=== PATIENT | female | born 1980 | race Caucasian/White ===

== ENCOUNTER 2017-05-05 14:48 | Inpatient (IN) | payer OTHER ==
[2017-05-05 15:58] LABS: Basophils % (Auto) 0.6 % (0.0-1.8); Eosinophils % (Auto) 2.8 % (0.0-4.3); Hematocrit 42.8 % (30.3-42.9); Hemoglobin 14.2 gm/dl (10.1-14.3); Mean Corpuscular HGB Conc 33 % (30-34); Mean Corpuscular Hemoglobin 29 pg (28-32); Mean Corpuscular Volume 86 fl (79-97); Platelet Count 267 K/mm3 (140-440); Red Blood Count 4.96 M/mm3 (3.65-5.03); White Blood Count 6.7 K/mm3 (4.5-11.0)
[2017-05-05 16:17] LABS: Alanine Aminotransferase 21 units/L (7-56); Albumin 4.5 g/dL (3.9-5); Albumin/Globulin Ratio 1.3 %; Alkaline Phosphatase 72 units/L (35-129); Anion Gap 19 mmol/L; BUN/Creatinine Ratio 14.28; Blood Urea Nitrogen 10 mg/dL (7-17); Calcium 9.3 mg/dL (8.4-10.2); Carbon Dioxide 24 mmol/L (22-30); Chloride 101.7 mmol/L (98-107); Glucose 95 mg/dL (65-100); Potassium 3.3 mmol/L (3.6-5.0); Sodium 141 mmol/L (137-145); Total Protein 7.9 g/dL (6.3-8.2)
[2017-05-05] MEDS ORDERED: NITRO-BID 2% TP ONE (16:53)
[2017-05-05] MEDS ORDERED: ASPIRIN PO ONE (16:53)
--- NOTE | 2017-05-05 16:57 | Emergency Department Report ---
HPI - General Chief Complaint: Chest Pain Time Seen by Provider: 05/05/17 16:38 - HPI HPI: Room 22 The patient is a 37-year-old female presenting with a chief complaint of chest pain. The patient states for the past 1-2 hours she's had substernal chest pain was dull in nature. The patient states her pain associated with shortness of breath, diaphoresis and nausea without vomiting. The patient currently gives her pain a score of 7.5/10. The patient states she just completed an 8 hour bus trip from [place] today. The patient states she's had a stress test earlier this year but has never had a cardiac catheterization Location: Substernal chest Duration: 1 To 2 hours Quality: Dull Severity: 7.5/10 Modifying factors: [see above] Context: [see above] Mode of transportation: [not driving] ED Past Medical Hx - Past Medical History Hx Asthma: Yes Hx COPD: Yes (no home O2) - Surgical History Additional Surgical History: tonsilectomy, nasal surgery - Family History Family history: no significant - Social History Smoking Status: Former Smoker (none 10 years) Substance Use Type: None (denies illicit drug use) - Medications Home Medications: Home Medications Medication Instructions Recorded Confirmed Last Taken Type ALBUTEROL Inhaler [Proair] 2 puff IH Q4H PRN 05/05/17 05/05/17 Unknown History Cetirizine HCl [Allergy Relief] 10 mg PO DAILY 05/05/17 05/05/17 Unknown History Fluticasone [Flonase] 2 sprays NS QDAY 05/05/17 05/05/17 Unknown History Fluticasone/Salmeterol [Advair 1 each IH BID 05/05/17 05/05/17 05/03/17 History 250-50 Diskus] Meloxicam [Mobic] 15 mg PO QDAY 05/05/17 05/05/17 05/03/17 History Omeprazole Magnesium [PriLOSEC Otc] 20 mg PO BID 05/05/17 05/05/17 Unknown History Potassium Chloride [K-Dur] 10 meq PO BID 05/05/17 05/05/17 05/03/17 History ED Review of Systems ROS: Stated complaint: ANXIETY Other details as noted in HPI Comment: All other systems reviewed and negative Constitutional: diaphoresis Eyes: denies: eye pain, eye discharge, vision change ENT: denies: ear pain, throat pain Respiratory: shortness of breath Cardiovascular: chest pain Endocrine: no symptoms reported Gastrointestinal: nausea. denies: abdominal pain, vomiting, diarrhea Genitourinary: denies: urgency, dysuria, discharge Musculoskeletal: denies: back pain, joint swelling, arthralgia Skin: denies: rash, lesions Neurological: denies: headache, weakness, paresthesias Psychiatric: denies: anxiety, depression Hematological/Lymphatic: denies: easy bleeding, easy bruising Physical Exam - Physical Exam Vital Signs: Vital Signs 05/05/17 05/05/17 15:19 16:43 Temperature 97.9 F Pulse Rate 86 73 Respiratory 16 18 Rate Blood Pressure 108/75 Blood Pressure 108/75 123/75 [Right] O2 Sat by Pulse 100 100 Oximetry Physical Exam: GENERAL: The patient is well-developed well-nourished female lying on stretcher not appearing to be in acute distress. [] HEENT: Normocephalic. Atraumatic. Extraocular motions are intact. Patient has moist mucous membranes. NECK: Supple. Trachea midline CHEST/LUNGS: Clear to auscultation. There is no respiratory distress noted. HEART/CARDIOVASCULAR: Regular. There is no tachycardia. There is no gallop rub or murmur. ABDOMEN: Abdomen is soft, nontender. Patient has normal bowel sounds. There is no abdominal distention. SKIN: There is no rash. There is no edema. There is no diaphoresis. NEURO: The patient is awake, alert, and oriented. The patient is cooperative. The patient has normal speech MUSCULOSKELETAL: There is no evidence of acute injury. ED Course Vital Signs 05/05/17 05/05/17 15:19 16:43 Temperature 97.9 F Pulse Rate 86 73 Respiratory 16 18 Rate Blood Pressure 108/75 Blood Pressure 108/75 123/75 [Right] O2 Sat by Pulse 100 100 Oximetry ED Medical Decision Making - Lab Data Result diagrams: 05/05/17 15:38 05/05/17 15:38 Laboratory Tests 05/05/17 05/05/17 05/05/17 15:38 15:38 15:38 WBC 6.7 RBC 4.96 Hgb 14.2 Hct 42.8 MCV 86 MCH 29 MCHC 33 RDW 14.0 Plt Count 267 Lymph % (Auto) 30.8 [place] % (Auto) 5.5 Eos % (Auto) 2.8 Baso % (Auto) 0.6 Lymph # 2.1 [place] # 0.4 Eos # 0.2 Baso # 0.0 Seg Neutrophils % 60.3 Seg Neutrophils # 4.1 Sodium 141 Potassium 3.3 L Chloride 101.7 Carbon Dioxide 24 Anion Gap 19 BUN 10 Creatinine 0.7 Estimated GFR > 60 BUN/Creatinine Ratio 14.28 Glucose 95 Calcium 9.3 Total Bilirubin 0.50 AST 15 ALT 21 Alkaline Phosphatase 72 Total Creatine Kinase 121 CK-MB (CK-2) < 1.0 CK-MB (CK-2) Rel Index 0.8 Troponin T < 0.010 Total Protein 7.9 Albumin 4.5 Albumin/Globulin Ratio 1.3 Urine Color Urine Turbidity Urine pH Ur Specific [place] Urine Protein Urine Glucose (UA) Urine Ketones Urine Blood Urine Nitrite Urine Bilirubin Urine Urobilinogen Ur Leukocyte Esterase Urine WBC (Auto) Urine RBC (Auto) U Epithel Cells (Auto) Urine Mucus 05/05/17 16:43 WBC RBC Hgb Hct MCV MCH MCHC RDW Plt Count Lymph % (Auto) [place] % (Auto) Eos % (Auto) Baso % (Auto) Lymph # [place] # Eos # Baso # Seg Neutrophils % Seg Neutrophils # Sodium Potassium Chloride Carbon Dioxide Anion Gap BUN Creatinine Estimated GFR BUN/Creatinine Ratio Glucose Calcium Total Bilirubin AST ALT Alkaline Phosphatase Total Creatine Kinase CK-MB (CK-2) CK-MB (CK-2) Rel Index Troponin T Total Protein Albumin Albumin/Globulin Ratio Urine Color Yellow Urine Turbidity Clear Urine pH 5.0 Ur Specific Rumsey 1.025 Urine Protein 30 mg/dl Urine Glucose (UA) Neg Urine Ketones 20 Urine Blood Sm Urine Nitrite Neg Urine Bilirubin Neg Urine Urobilinogen 2.0 Ur Leukocyte Esterase Lg Urine WBC (Auto) 7.0 H Urine RBC (Auto) 9.0 U Epithel Cells (Auto) 7.0 Urine Mucus 3+ - EKG Data -: EKG Interpreted by Me EKG shows normal: sinus rhythm Rate: normal - EKG Data When compared to previous EKG there are: previous EKG unavailable - Radiology Data Radiology results: report reviewed (CT chest), image reviewed (CT chest) CT chest (as read by radiologist)-normal examination - Differential Diagnosis ACS, PE, pericarditis, GERD Critical care attestation.: If time is entered above; I have spent that time in minutes in the direct care of this critically ill patient, excluding procedure time. ED Disposition Clinical Impression: Chest pain, Hypokalemia Disposition: OP ADMIT IP TO THIS HOSP Is pt being admited?: Yes Does the pt Need Aspirin: Yes Condition: Fair Instructions: Chest Pain (ED) Referrals: PRIMARY CARE, [Primary Care Provider] - 3-5 Days Time of Disposition: 18:59 (hospitalist paged)
[2017-05-05 16:59] LABS: Creatine Kinase 121 units/L (30-135)
[2017-05-05 17:00] LABS: Creatine Kinase MB < 1.0 ng/mL (0.0-4.0)
--- NOTE | 2017-05-05 17:07 | Admit Criteria Form ---
Admission Criteria Documentation: CARDIOLOGY GRG Clinical Indications for Admission to Inpatient Care ( Place 'X' for any and all applicable criteria): Hospital admission is needed for appropriate care of the patient because of ANY ONE of the following (1): [ ] I. Hemodynamic instability as indicated by ALL of the following (1)(2)(3) (4)(5) [ ]a) Vital signs or other findings not as expected for chronic patient condition or baseline [ ]b) Instability indicated by ANY ONE of the following: [ ]i) Hypotension [ ]ii) Symptomatic Tachycardia unresponsive to treatment ( e.g., analgesia, fluids, sedation as indicated) [ ]iii) Inadequate perfusion indicated by ANY ONE of the following: [ ] 1) Lactic acidosis (> 2 mmol/L) [ ] 2) New abnormal capillary refill (> 3 seconds) [ ] 3) Reduced urine output [ ] 4) New altered mental status [ ]iv) Orthostatic vital sign changes unresponsive to treatment (e.g., fluids) [ ]v) IV inotropic or vasopressor medication required to maintain adequate blood pressure or perfusion [ ] II. Severe heart failure as indicated by ANY ONE of the following(17)(18) [ ]a) Respiratory distress [ ]b) Hypotension [ ]c) Anasarca (refractory to outpatient therapy) [ ]d) Cardiac arrhythmias of immediate concern [ ]e) Myocardial ischemia [ ] III. Cardiac arrhythmias or findings of immediate concern indicated by ANY ONE of the following (19)(20): [ ] a) Heart rhythms that are inherently dangerous or unstable indicated by ANY ONE of the following (21)(22)(23): [ ] i) Resuscitated ventricular fibrillation or cardiac arrest [ ] ii) Ventricular escape rhythm [ ] iii) Sustained ventricular tachycardia (30 seconds or more of ventricular rhythm at greater than 100 beats per minute) [ ] iv) Nonsustained ventricular tachycardia and ANY ONE of the following: [ ] 1) Suspected cardiac ischemia as cause or consequence of ventricular tachycardia [ ] 2) In setting of acute myocarditis [ ] b) Unstable cardiac conduction defects indicated by ANY ONE of the following(23)(24)(25) [ ] i) Type II second-degree atrioventricular block [ ]ii) Third-degree atrioventricular block [ ]iii) New-onset left bundle branch block with suspected myocardial ischemia [ ]c) Any heart rhythm and ANY ONE of the following (21)(22)(26)(27) (28) [ ] i) Continuous long-term ECG monitoring needed (e.g., initiation of drug requiring monitoring for more than 24 hours) [ ] ii) Patient has automatic implanted cardioverter defibrillator that is repeatedly firing, malfunctioning, or in need of immediate adjustment of settings beyond the scope of ambulatory or observation care [ ]d) Heart rhythms of concern due to ANY ONE of the following: [ ] i) Hypotension [ ] ii) Respiratory distress [ ] iii) Association with other significant symptoms (e.g., bradycardia with syncope or ongoing dizziness, supraventricular tachycardia with chest pain (14)(15)(17) [ ] IV. Monitoring for cardiac contusion beyond the scope of observation care needed [A](30)(31)(32) [ ] V. Surgical or device complication (e.g., valve replacement complication , pacemaker dysfunction) (35)(41)(44)(45)(46) [ ] . Inpatient palliative care needed. [B](49) Also use Inpatient Palliative Care Criteria [ ] VII. Nonbacterial thrombotic (marantic) endocarditis (36)(43)(47)(48) [X] VIII. Cardiology condition, symptom, or finding for which emergency and observation care has failed or are not considered appropriate. [ ] IX. Acute valvular disease requiring inpatient as indicated by ANY ONE of the following (41) [ ]a) Acute valvular regurgitation (42) [ ]b) Noninfectious valvulitis (43) [ ]c) Obstructive valve thrombosis [ ]d) Paravalvular leak [ ]e) Other significant valvular disorder remaining after emergency or observation level of care (as appropriate) [ ]X. Pericardial disease requiring inpatient treatment as indicated by ANY ONE of the following (33)(34)(35)(36)(37) [ ]a) Suspected tamponade (38)(39)(40) [ ]b) Hemopericardium [ ]c) Other significant pericardial disorder remaining after emergency or observation level of care (as appropriate) [ ] XI. Cardiac ischemia beyond scope of emergency and observation care. [ ] XII. Hypertension requiring inpatient treatment as indicated by ANY ONE of the following (6)(7)(8) [ ]a) SBP greater than 220 mm Hg or DBP greater than 120 mmHg despite treatment [ ]b) SBP greater than 140 mm Hg or DBP greater than 100 mm Hg with evidence of acute end organ damage as indicated by ANY ONE of the following [ ] i) Altered mental status [ ] ii) Acute renal failure as indicated by new onset of ANY ONE of the following (9)(10)(11)(12)(13) [ ]1) 3-fold rise in serum creatinine from baseline [ ]2) Serum creatinine greater than 4 mg/dL ( 354 micromoles/L) with acute rise greater than 0.5 mg/dL (44.2 micromoles/L) [ ]3) Reduction of more than 75% in estimated glomerular filtration rate from baseline [ ]4) Estimated glomerular filtration rate less than 35 mL/min/1.73m2 (0.59 mL/sec/1.73m2) in child up to 18 years of age [ ]5) Cessation of urine output indicated by ALL of the following [ ]A. Adequate volume status [ ]B. Inadequate urine output as indicated by ANY ONE of the following [ ]a. Urine output less than 0.3 mL/kg/hr for 24 hours [ ]b. Anuria (urine output less than 0.1 mL/kg/hr) for 12 hours [ ] iii) Aortic dissection [ ] iv) Myocardial Ischemia [ ] v) Left ventricular heart failure [ ]vi) Retinal Hemorrhage [ ]vii) Other significant finding [ ]c) Hypertension in child requiring inpatient treatment as indicated by ALL of the following(14)(15)(16) [ ] i) Outpatient treatment not effective, not available, or not appropriate [ ]ii) SBP or DBP greater than 95th percentile for age [ ]iii) Evidence of acute end organ damage as indicated by ANY ONE of the following [ ]1) Altered mental status [ ]2) Acute renal failure as indicated by new onset of ANY ONE of the following(9)(10)(11)(12)(13) [ ]A. 3-fold rise in serum creatinine from baseline [ ]B. Serum creatinine greater than 4 mg/dL (354 micromoles/L) with acute rise greater than 0.5 mg/dL (44.2 micromoles/L) [ ]C. Reduction of more than 75% in estimated glomerular filtration rate from baseline [ ]D. Estimated glomerular filtration rate less than 35 mL/min/1.73m2 (0.59 mL/sec/1.73m2) in child up to 18 years of age [ ]E. Cessation of urine output indicated by ALL of the following [ ]a. Adequate volume status [ ]b. Inadequate urine output as indicated by ANY ONE of the following [ ]i) Urine output less than 0.3 mL/kg/hr for 24 hours [ ]ii) Anuria ( urine output less than 0.1 mL/kg/hr) for 12 hours [ ]3) Severe headache [ ]4) Visual disturbance [ ]5) Retinal hemorrhage [ ]6) Other significant finding [ ]XIII. Complications of transplanted heart indicated by ANY ONE of the following(61): [ ]a) Acute graft rejection requiring inpatient management (eg, intravenous immunosuppression)(62)(63) [ ]b) Acute graft heart failure indicated by ANY ONE of the following(64): [ ]i) Hemodynamic instability [ ]ii) Cardiac arrhythmias of immediate concern [ ]iii) Pulmonary edema that is very severe (eg, mechanical ventilation needed, imminent or likely, need for 100% oxygen to keep oxygen saturation above 90%) [ ]iv) Pulmonary edema that is persistent as indicated by ALL of the following: [ ]1) New need for oxygen therapy to keep oxygen saturation above 90% (or increased FiO2 need from baseline) [ ]2) Has not improved sufficiently with emergency department or observation care IV diuretics or other heart failure treatments[E] [ ]v) Altered mental status that is severe or persistent [ ]vi) Increased creatinine (new on laboratory test) with reduction of more than 50% in estimated glomerular filtration rate from baseline [ ]vii) Progressively (ongoing) rising creatinine (known from past laboratory test) with reduction of more than 25% in estimated glomerular filtration rate from baseline [ ]viii) Acute renal failure [ ]ix) Acute peripheral ischemia (eg, examination shows pulseless, cool, mottled, or cyanotic extremity) [ ]x) Pulmonary artery catheter monitoring needed [ ]xi) Other sign or symptom of heart failure requiring inpatient treatment (ie, too severe or not responsive to outpatient and observation care treatment) [ ]c) Infection requiring inpatient management (eg, Hemodynamic instability, need for intravenous antimicrobial treatment)(66)(67)(68)(69)(70) [ ]d) Cardiac allograft vasculopathy requiring inpatient management ( eg evidence of cardiac ischemia)(71) [ ]e) Other complication of transplanted heart (eg, stroke, severe pulmonary hypertension, severe valvular dysfunction) requiring inpatient management(72) The original [facility] [employer] content created by [employer] [facility] [employer] has been revised. The portions of the content which have been revised are identified through the use of italic text or in bold, and [facility] has neither reviewed nor approved the modified material. All other unmodified content is copyright [facility] [employer]. Please see references footnoted in the original [facility] [employer] edition 2016 Admission Criteria Met: Yes
[2017-05-05 17:18] LABS: Bilirubin,Urine NEG (Negative); Blood,Urine SM (Negative); Ketones,Urine 20 mg/dL (Negative); Leukocyte Esterase,Urine LG (Negative); Mucus,Urine 3+ /HPF; Nitrite,Urine NEG (Negative)
[2017-05-05] MEDS ORDERED: NACL ONE (17:21)
--- NOTE | 2017-05-05 18:24 | Cat Scan Report ---
FINAL REPORT PROCEDURE: CT ANGIO CHEST TECHNIQUE: Computerized tomographic angiography of the chest was performed after the IV injection of iodinated nonionic contrast including image processing. The image data was postprocessed using 2-dimensional multiplanar reformatted (MPR) and 3-dimensional (MIP and/or volume rendered) techniques. HISTORY: chest pain, shortness of breath COMPARISON: No prior studies are available for comparison. FINDINGS: Lungs are clear. The heart is normal in size. No pneumothorax or pleural effusion is seen. There is no mediastinal lymphadenopathy. Thoracic aorta is normal in size without evidence of dissection. No pulmonary embolus is seen. No fractures are seen. IMPRESSION: Normal Examination
[2017-05-05] MEDS ORDERED: NON-FORMULARY (Cetirizine Hcl [Allergy Relief] 10 MG) PO SCH (21:00)
[2017-05-05] MEDS ORDERED: AMBIEN PO PRN (21:01)
[2017-05-05] MEDS ORDERED: SODIUM CHLORIDE FLUSH SYRINGE 10 ML IV PRN (21:01)
[2017-05-05] MEDS ORDERED: FLUTICASONE IH SCH (22:00)
[2017-05-05] MEDS ORDERED: SALMETEROL IH SCH (22:00)
--- NOTE | 2017-05-05 22:30 | History and Physical Report ---
History of Present Illness Date of examination: 05/05/17 Date of admission: 05/05/17 18:59 Chief complaint: Chest pain - one day duration History of present illness: Patient is a 37-year-old lady who has a history of COPD, and arthritis of the ankle was traveling down to [place] from [place] when she started having dull on account of retrosternal chest pain. Associated with shortness of breath. Denies any diaphoresis. No fever no chills. No orthopnea proximal nocturnal dyspnea. Came to the emergency department with evidence of cardiac enzymes were normal. Potassium was found to be ordered 3.3. Admission was therefore requested. Past History Past Medical History: COPD, other (hypokalemia) Past Surgical History: No surgical history Social history: lives with family. denies: smoking, alcohol abuse, prescription drug abuse Family history: hypertension Medications and Allergies Allergies Allergy/AdvReac Type Severity Reaction Status Date / Time No Known Allergies Allergy Unverified 05/05/17 15:23 Home Medications Medication Instructions Recorded Confirmed Last Taken Type ALBUTEROL Inhaler [Proair] 2 puff IH Q4H PRN 05/05/17 05/05/17 Unknown History Cetirizine HCl [Allergy Relief] 10 mg PO DAILY 05/05/17 05/05/17 Unknown History Fluticasone [Flonase] 2 sprays NS QDAY 05/05/17 05/05/17 Unknown History Fluticasone/Salmeterol [Advair 1 each IH BID 05/05/17 05/05/17 05/03/17 History 250-50 Diskus] Meloxicam [Mobic] 15 mg PO QDAY 05/05/17 05/05/17 05/03/17 History Omeprazole Magnesium [PriLOSEC Otc] 20 mg PO BID 05/05/17 05/05/17 Unknown History Potassium Chloride [K-Dur] 10 meq PO BID 05/05/17 05/05/17 05/03/17 History Active Meds: Active Medications Arformoterol Tartrate (Brovana Nebu) 15 mcg IH Q12HRT [facility] Aspirin (Aspirin) 325 mg PO QDAY DELMY Budesonide (Pulmicort) 0.5 mg IH Q12HRT DELMY Enoxaparin Sodium (Lovenox) 40 mg SUB-Q QDAY DELMY Fluticasone Propionate (Flonase) 100 mcg NS QDAY DELMY Loratadine (Claritin) 10 mg PO DAILY DELMY Potassium Chloride (K-Dur) 10 meq PO BID DELMY Sodium Chloride (Sodium Chloride Flush Syringe 10 Ml) 10 ml IV PRN PRN PRN Reason: LINE FLUSH Zolpidem Tartrate (Ambien) 5 mg PO QHS PRN PRN Reason: Sleep Exam - Constitutional Vitals: Temp Pulse Resp BP Pulse Ox 98.2 F 70 17 104/62 99 05/05/17 15:19 05/05/17 20:35 05/05/17 20:35 05/05/17 20:35 05/05/17 20:35 General appearance: Present: no acute distress, well-nourished - EENT Eyes: Present: PERRL - Neck Neck: Present: supple, normal ROM - Respiratory Respiratory effort: normal Respiratory: bilateral: CTA - Cardiovascular Heart Sounds: Present: S1 & S2. Absent: rub, click - Extremities Extremities: No edema Peripheral Pulses: within normal limits - Abdominal General gastrointestinal: Present: soft, non-tender, non-distended, normal bowel sounds Female genitourinary: Present: normal - Integumentary Integumentary: Present: clear, warm, dry - Musculoskeletal Musculoskeletal: gait normal, strength equal bilaterally - Psychiatric Psychiatric: appropriate mood/affect, intact judgment & insight - Neurologic Neurologic: CNII-XII intact, moves all extremities Results - Labs CBC & Chem 7: 05/05/17 15:38 05/05/17 15:38 Assessment and Plan - Chest pain rule out acute coronary syndrome - COPD Admit patient to telemetry Commence patient on oxygen nitroglycerin aspirin and morphine and beta jai Commence patient on Bronchodilators, IV Solu-Medrol. DVT PPx with lovenox and GI with pepcid
[2017-05-05] MEDS: LOVENOX SUB-Q SCH (22:43)
[2017-05-05] MEDS: K-DUR PO SCH (22:44)
[2017-05-05] MEDS: BROVANA NEBU IH SCH (23:18)
[2017-05-05] MEDS: PULMICORT IH SCH (23:19)
[2017-05-05] MEDS: MORPHINE IV PRN (23:38)
[2017-05-05] MEDS: CLARITIN PO SCH (23:38)
[2017-05-06 01:39] LABS: Creatine Kinase 108 units/L (30-135)
[2017-05-06 01:42] LABS: Creatine Kinase MB < 1.0 ng/mL (0.0-4.0)
[2017-05-06] MEDS: MORPHINE IV PRN ×2 (06:07→12:16)
[2017-05-06 06:26] LABS: Creatine Kinase 97 units/L (30-135)
[2017-05-06 06:28] LABS: Creatine Kinase MB < 1.0 ng/mL (0.0-4.0)
[2017-05-06] MEDS ORDERED: LEXISCAN IV ONE ×2 (08:10→08:11)
[2017-05-06] MEDS ORDERED: ASPIRIN PO SCH (10:00)
[2017-05-06] MEDS ORDERED: FLONASE NS SCH (10:00)
[2017-05-06] MEDS: BROVANA NEBU IH SCH (10:28)
[2017-05-06] MEDS: PULMICORT IH SCH (10:28)
[2017-05-06] MEDS: CLARITIN PO SCH (10:30)
[2017-05-06] MEDS: LOVENOX SUB-Q SCH (10:30)
[2017-05-06] MEDS: K-DUR PO SCH (10:30)
--- NOTE | 2017-05-06 10:32 | Discharge Summary ---
Providers - Providers Date of Admission: 05/05/17 18:59 Date of discharge: 05/06/17 Attending physician: ELIDA RIZZO MD 05/05/17 Consult to Cardiac Rehabilitation [CONS] Routine Reason For Exam: Phase I Primary care physician: TIP FIXER Hospitalization Reason for admission: Chest pain Condition: Fair Pertinent studies: Cardiac stress test: negative for acute ischemia Hospital course: Patient is a 37-year-old lady who has a history of COPD, and arthritis of the ankle was traveling down to [place] from [place] when she started having dull on account of retrosternal chest pain. Associated with shortness of breath. Denies any diaphoresis. No fever no chills. No orthopnea proximal nocturnal dyspnea. Came to the emergency department with evidence of cardiac enzymes were normal. Potassium was found to be ordered 3.3. Patient was admitted and her potassium was repleted. Her home COPD medications were restarted. MPI was negative for ischemia. patient's chest pain was subsided. patient was hemodynamically stable at the time of discharge. Patient ran out of her COPD medications and were refilled at the time of discharge. patient's questions and concerns were addressed at the bedside. Disposition: DC-01 TO HOME OR SELFCARE Time spent for discharge: 31 minutes - Discharge Diagnoses (1) Chest pain Status: Acute Qualifiers: Chest pain type: C Ischemic chest pain type: I (2) Hypokalemia Status: Acute Core Measure Documentation - Palliative Care Palliative Care/ Comfort Measures: Not Applicable - Core Measures Any of the following diagnoses?: none Exam - Physical Exam Narrative exam: Not in cardiopulmonary distress. The patient appeared well nourished and normally developed. Vital signs as documented. Head exam is unremarkable. No scleral icterus . Neck is without jugular venous distension, thyromegaly, or carotid bruits. Lungs are clear to auscultation. Cardiac exam reveals regular rate and Rhythm. First and second heart sounds normal. No murmurs, rubs or gallops. Abdominal exam reveals normal bowel sounds, no masses, no organomegaly and no aortic enlargement. Extremities are nonedematous and both femoral and pedal pulses are normal. [employer]: Alert and oriented 3. No focal weakness. - Constitutional Vitals: Temp Pulse Resp BP Pulse Ox 98.2 F 68 18 88/66 96 05/06/17 06:01 05/06/17 06:01 05/06/17 06:37 05/06/17 06:01 05/06/17 06:01 Plan Activity: no restrictions Weight Bearing Status: Full Weight Bearing Diet: low cholesterol Follow up with: PRIMARY CARE, [Primary Care Provider] - 3-5 Days Prescriptions: ALBUTEROL Inhaler [ProAir HFA Inhaler] 2 puff IH Q4H PRN #1 can PRN Reason: Wheezing Cetirizine HCl [Allergy Relief] 10 mg PO DAILY #15 tablet Fluticasone [Flonase] 2 sprays NS QDAY #1 bottle Fluticasone/Salmeterol [Advair 250-50 Diskus] 1 each IH BID #1 [facility] Meloxicam [Mobic] 15 mg PO QDAY #30 tablet Omeprazole Magnesium [PriLOSEC Otc] 20 mg PO BID #28 tablet. Potassium Chloride [K-Dur] 10 meq PO BID #60 tablet
[2017-05-06 12:47] VITALS: BP 103/61
[2017-05-06 14:30] LABS: Anion Gap 19 mmol/L; BUN/Creatinine Ratio 12.85; Blood Urea Nitrogen 9 mg/dL (7-17); Calcium 8.9 mg/dL (8.4-10.2); Carbon Dioxide 22 mmol/L (22-30); Chloride 101.6 mmol/L (98-107); Glucose 95 mg/dL (65-100); Potassium 3.3 mmol/L (3.6-5.0); Sodium 139 mmol/L (137-145)
[2017-05-06 14:34] LABS: Creatine Kinase 102 units/L (30-135)
[2017-05-06 14:39] LABS: Creatine Kinase MB < 1.0 ng/mL (0.0-4.0)
--- NOTE | 2017-05-06 23:34 | Treadmill Report ---
Myocardial perfusion scan was done using standard protocol. Rest and stress images were obtained and gated analysis was obtained. FINDINGS: Homogenous uptake of tracer noted in the rest and stress images. Comparison of the rest and stress images revealed no fixed or reversible defect suggestive of ischemia or infarct. No RV abnormalities were noted. IMPRESSION: 1. Normal myocardial perfusion scan. 2. Persevered LV systolic function. 3. Low risk cardiac scan. JOB# [id number] BRITTANY/ALBERTINA PALMA
== END 2017-05-06 14:28 | disposition home or self-care (01) | DRG 313 ==
LOC: ED 14:48 → 4A 18:59
PROVIDERS: ADMIT Family Medicine; ATTEND Internal Medicine
DX: R07.9 Chest pain, unspecified (principal); J44.9 Chronic obstructive pulmonary disease, unspecified; Z99.81 Dependence on supplemental oxygen; Z90.89 Acquired absence of other organs; Z87.891 Personal history of nicotine dependence; E87.6 Hypokalemia; M19.90 Unspecified osteoarthritis, unspecified site; Z82.49 Family history of ischemic heart disease and other diseases of the circulatory system
CPT/HCPCS: 36415; 71275; 78452; 80048; 80053; 81001; 82550; 82553; 84484; 85025; 93005; 93010; 93017; 94640; A9502; J1650; J2270; J2785; Q9967

== ENCOUNTER 2018-01-20 18:20 | Emergency (ER) | payer MEDICAID ==
[2018-01-20 18:57] LABS: Basophils % (Auto) 0.6 % (0.0-1.8); Eosinophils # (Auto) 0.1 K/mm3 (0.0-0.4); Eosinophils % (Auto) 1.2 % (0.0-4.3); Hematocrit 37.2 % (30.3-42.9); Hemoglobin 12.4 gm/dl (10.1-14.3); Lymphocytes # (Auto) 2.5 K/mm3 (1.2-5.4); Lymphocytes % (Auto) 35.7 % (13.4-35.0); Mean Corpuscular HGB Conc 34 % (30-34); Mean Corpuscular Hemoglobin 28 pg (28-32); Mean Corpuscular Volume 85 fl (79-97); Monocytes # (Auto) 0.5 K/mm3 (0.0-0.8); Monocytes % (Auto) 7.7 % (0.0-7.3); Platelet Count 280 K/mm3 (140-440); Red Blood Count 4.39 M/mm3 (3.65-5.03); Red Cell Distribution Width 13.6 % (13.2-15.2)
[2018-01-20 19:06] LABS: INR 0.95 (0.87-1.13)
[2018-01-20 19:07] LABS: Partial Thromboplastin Time 30.2 Sec. (24.2-36.6)
[2018-01-20 19:08] LABS: Blood Urea Nitrogen 10 mg/dL (7-17)
[2018-01-20 19:51] LABS: BUN/Creatinine Ratio 20; Calcium 8.7 mg/dL (8.4-10.2); Hemolysis Index 4
[2018-01-21] MEDS ORDERED: HALDOL IM ONE (02:36)
[2018-01-21] MEDS ORDERED: ZOFRAN IM ONE (02:36)
--- NOTE | 2018-01-21 02:42 | Emergency Department Report ---
ED General Adult HPI - General Chief complaint: Neuro Symptoms/Deficit Stated complaint: HEAD PAIN Time Seen by Provider: 01/21/18 01:24 Source: patient Mode of arrival: Ambulatory Limitations: No Limitations - History of Present Illness Initial comments: 38-year-old woman with 2 day history of right-sided headache, right sided body pain and sensation numbness in right arm, as well as bilateral chest pain, which has been more or less persistent, described as generally achy in all locations, and somewhat aggravated by some movement, particularly with the chest discomfort. She has no prior history of migraines, nor has she had a prior stroke, and no past history of myocardial infarction. She's not had any recent trauma, no constitutional symptoms of fever or chills or diaphoresis, and has otherwise been in good health. She became concerned, when she didn't Internet search of her symptoms, and stroke and heart attacks were in this, and comes for further evaluation, as she has had a prior CT scan of the brain for previous symptoms. Although she's been having persistent discomfort, she has been able to be up and around at her home, has been able to perform routine activities of daily living, without any instability, no focal weakness, no collapse. Onset/Timin -: Gradual, days(s) Location: head (unilateral, right side), chest (bilateral, anterior, with some radiation towards the left mid back), upper extremity (unilateral right-sided), lower extremity (unilateral, right side) Radiation: neck Severity scale (0 -10): 7 Quality: aching Improves with: none Worsens with: movement Associated Symptoms: denies other symptoms. denies: shortness of breath Treatments Prior to Arrival: NSAID - Related Data Previous Rx's Medication Instructions Recorded Last Taken Type ALBUTEROL Inhaler [ProAir HFA 2 puff IH Q4H PRN #1 can 05/06/17 Unknown Rx Inhaler] Cetirizine HCl [Allergy Relief] 10 mg PO DAILY #15 tablet 05/06/17 Unknown Rx Fluticasone [Flonase] 2 sprays NS QDAY #1 bottle 05/06/17 Unknown Rx Fluticasone/Salmeterol [Advair 1 each IH BID #1 blst.w.dev 05/06/17 Unknown Rx 250-50 Diskus] Meloxicam [Mobic] 15 mg PO QDAY #30 tablet 05/06/17 Unknown Rx Omeprazole Magnesium [PriLOSEC Otc] 20 mg PO BID #28 tablet. 05/06/17 Unknown Rx Potassium Chloride [K-Dur] 10 meq PO BID #60 tablet 05/06/17 Unknown Rx Acetaminophen/Codeine [Tylenol 1 tab PO Q4HR PRN #15 tablet 01/21/18 Unknown Rx /Codeine # 3 tab] Allergies Allergy/AdvReac Type Severity Reaction Status Date / Time No Known Allergies Allergy Verified 01/20/18 18:26 ED Review of Systems ROS: Stated complaint: HEAD PAIN Other details as noted in HPI Comment: All other systems reviewed and negative Constitutional: denies: chills, diaphoresis, fever, weakness Eyes: denies: eye pain, eye discharge, vision change ENT: other (difficulty, no facial droop). denies: ear pain, throat pain Respiratory: no symptoms reported Cardiovascular: chest pain. denies: palpitations, dyspnea on exertion, edema, syncope Endocrine: no symptoms reported Gastrointestinal: nausea (chronic, mild,). denies: abdominal pain, vomiting Musculoskeletal: as per HPI Skin: denies: rash, lesions Neurological: headache, paresthesias. denies: weakness, abnormal gait, vertigo Psychiatric: denies: anxiety, depression Hematological/Lymphatic: denies: easy bleeding, easy bruising ED Past Medical Hx - Past Medical History Hx Congestive Heart Failure: No Hx Diabetes: No Hx Asthma: Yes Hx COPD: Yes (no home O2) - Surgical History Past Surgical History?: Yes Additional Surgical History: tonsilectomy, nasal surgery - Social History Smoking Status: Never Smoker Substance Use Type: None - Medications Home Medications: Home Medications Medication Instructions Recorded Confirmed Last Taken Type ALBUTEROL Inhaler [ProAir HFA 2 puff IH Q4H PRN #1 can 05/06/17 Unknown Rx Inhaler] Cetirizine HCl [Allergy Relief] 10 mg PO DAILY #15 tablet 05/06/17 Unknown Rx Fluticasone [Flonase] 2 sprays NS QDAY #1 bottle 05/06/17 Unknown Rx Fluticasone/Salmeterol [Advair 1 each IH BID #1 blst.w.dev 05/06/17 Unknown Rx 250-50 Diskus] Meloxicam [Mobic] 15 mg PO QDAY #30 tablet 05/06/17 Unknown Rx Omeprazole Magnesium [PriLOSEC Otc] 20 mg PO BID #28 tablet. 05/06/17 Unknown Rx Potassium Chloride [K-Dur] 10 meq PO BID #60 tablet 05/06/17 Unknown Rx Acetaminophen/Codeine [Tylenol 1 tab PO Q4HR PRN #15 tablet 01/21/18 Unknown Rx /Codeine # 3 tab] ED Physical Exam - General Limitations: No Limitations General appearance: alert, anxious - Head Head exam: Present: atraumatic, other (muscle tenderness palpation, worse on right side, generally) - Eye Eye exam: Present: PERRL, EOMI. Absent: nystagmus - ENT ENT exam: Present: normal exam - Neck Neck exam: Present: tenderness (right paracervical soft tissue maximally tender) - Respiratory Respiratory exam: Present: normal lung sounds bilaterally, chest wall tenderness. Absent: wheezes, rales, rhonchi, accessory muscle use - Cardiovascular Cardiovascular Exam: Present: regular rate - GI/Abdominal GI/Abdominal exam: Present: soft. Absent: tenderness, guarding, rebound - Rectal Rectal exam: Present: deferred - Extremities Exam Extremities exam: Present: normal inspection, tenderness. Absent: pedal edema, joint swelling, calf tenderness - Back Exam Back exam: Present: tenderness, muscle spasm, paraspinal tenderness. Absent: CVA tenderness (R), CVA tenderness (L) - Neurological Exam Neurological exam: Present: alert, oriented X3, CN II-XII intact, normal gait, other (balance is normal, Romberg is negative). Absent: motor sensory deficit - Psychiatric Psychiatric exam: Present: anxious - Skin Skin exam: Present: warm, dry ED Course Vital Signs 01/20/18 01/21/18 18:26 00:55 Temperature 97.9 F 98.0 F Pulse Rate 98 H 67 Respiratory 16 16 Rate Blood Pressure 97/66 Blood Pressure 99/58 [Right] O2 Sat by Pulse 97 100 Oximetry - Reevaluation(s) Reevaluation #1: 01/21/18 04:28 Patient significantly improved on repeat examination at 0425, after having been treated with intramuscular injection of Haldol and Zofran. She felt well enough to go home. She does not currently work, was advised to rest while she has headache, and I will give her a short course of codeine for any residual headache. Patient reassured that there are no findings suggestive of a stroke, and advised about healthy diet, regular activity, and repeat examination recommended within a week if she has any persistent problems ED Medical Decision Making - Lab Data Result diagrams: 01/20/18 18:44 01/20/18 18:44 - EKG Data -: EKG Interpreted by Me EKG shows normal: sinus rhythm Rate: normal (normal EKG, no evidence of acute cardiac abnormality.) - Radiology Data Radiology results: report reviewed Normal noncontrast CT scan of the brain with no evidence of acute stroke, or other significant intracranial pathology. - Medical Decision Making Patient is clinically stable, neurologically normal, has primarily musculoskeletal tenderness in the right scalp as well as right neck and upper back, with secondary paresthesias and mild numbness. Patient was significantly improved with injection of Haldol and Zofran, and feels well enough to go home, and will be given a short prescription of codeine if she has any residual discomfort. - Differential Diagnosis somatic symptoms, paresthesias, stroke, myocardial infarction, musculoskele Critical Care Time: No Critical care attestation.: If time is entered above; I have spent that time in minutes in the direct care of this critically ill patient, excluding procedure time. ED Disposition Clinical Impression: Headache Qualifiers: Headache type: tension-type Headache chronicity pattern: acute headache Chest pain Qualifiers: Chest pain type: unspecified Qualified Code(s): R07.9 - Chest pain, unspecified Disposition: DC-01 TO HOME OR SELFCARE Is pt being admited?: No Does the pt Need Aspirin: No Condition: Stable Instructions: Chest Pain (ED) Additional Instructions: headache Prescriptions: Acetaminophen/Codeine [Tylenol /Codeine # 3 tab] 1 tab PO Q4HR PRN #15 tablet PRN Reason: Pain Referrals: GILBERT LOGAN MD [Primary Care Provider] - 3-5 Days Time of Disposition: 04:32
--- NOTE | 2018-01-21 03:12 | Cat Scan Report ---
FINAL REPORT PROCEDURE: CT HEAD/BRAIN WO CON TECHNIQUE: Computerized tomography of the head was performed without contrast material. HISTORY: headache, right side, numbness right ext; neuro nl COMPARISON: No prior studies are available for comparison. FINDINGS: Skull and scalp: Normal. Paranasal sinuses: Normal. Ventricles and subarachnoid spaces: Normal. Cerebrum: No evidence of hemorrhage, acute infarction or mass . Cerebellum and brainstem: No evidence of hemorrhage, acute infarction or mass. Vasculature: Normal. Comments: None. IMPRESSION: Normal Examination
[2018-01-21 05:26] VITALS: BP 94/49
== END 2018-01-21 05:31 | disposition home or self-care (01) ==
LOC: ED 18:20
DX: G44.209 Tension-type headache, unspecified, not intractable (principal); R07.9 Chest pain, unspecified; J44.9 Chronic obstructive pulmonary disease, unspecified
CPT/HCPCS: 36415; 70450; 80048; 84484; 85025; 85610; 85670; 85730; 93005; 93010; 96372; 99284; J1630; J2405

== ENCOUNTER 2018-02-23 00:22 | Emergency (ER) | payer MEDICAID ==
[2018-02-23 01:44] LABS: Basophils % (Auto) 0.3 % (0.0-1.8); Eosinophils % (Auto) 0.6 % (0.0-4.3); Hematocrit 40.2 % (30.3-42.9); Lymphocytes # (Auto) 1.6 K/mm3 (1.2-5.4); Lymphocytes % (Auto) 25.8 % (13.4-35.0); Mean Corpuscular HGB Conc 35 % (30-34); Mean Corpuscular Hemoglobin 29 pg (28-32); Mean Corpuscular Volume 82 fl (79-97); Monocytes # (Auto) 0.7 K/mm3 (0.0-0.8); Monocytes % (Auto) 10.8 % (0.0-7.3); Platelet Count 297 K/mm3 (140-440); Red Blood Count 4.89 M/mm3 (3.65-5.03); Red Cell Distribution Width 13.9 % (13.2-15.2)
[2018-02-23 02:24] LABS: Alanine Aminotransferase 17 units/L (7-56); Albumin 4.1 g/dL (3.9-5); BUN/Creatinine Ratio 18; Blood Urea Nitrogen 9 mg/dL (7-17); Calcium 8.8 mg/dL (8.4-10.2); Hemolysis Index 0
[2018-02-23 03:07] LABS: Bilirubin,Urine NEG (Negative); Blood,Urine SM (Negative); Color,Urine Yellow (Yellow); Mucus,Urine 2+ /HPF; Protein,Urine <15 mg/dL mg/dL (Negative)
[2018-02-23] MEDS ORDERED: ZOFRAN ODT PO ONE (04:01)
[2018-02-23] MEDS ORDERED: NORCO 5/325 PO ONE (04:01)
[2018-02-23] MEDS ORDERED: MACROBID PO ONE (04:01)
--- NOTE | 2018-02-23 04:34 | Emergency Department Report ---
ED Abdominal Pain HPI - General Chief Complaint: Abdominal Pain Stated Complaint: ABD PAIN Time Seen by Provider: 02/23/18 03:33 Source: patient Mode of arrival: Ambulatory Limitations: No Limitations - History of Present Illness Initial Comments: Patient is a 38-year-old female who is presenting with a day of abdominal pain. Patient says she has some epigastric discomfort with nausea but denies any vomiting or diarrhea. Patient also has some pressure sensation in the suprapubic region with radiation to the lower back. Patient denies any fevers chills at this time. Patient states the pain is 9 out of 10 in severity. - Related Data Previous Rx's Medication Instructions Recorded Last Taken Type ALBUTEROL Inhaler [ProAir HFA 2 puff IH Q4H PRN #1 can 05/06/17 Unknown Rx Inhaler] Cetirizine HCl [Allergy Relief] 10 mg PO DAILY #15 tablet 05/06/17 Unknown Rx Fluticasone [Flonase] 2 sprays NS QDAY #1 bottle 05/06/17 Unknown Rx Fluticasone/Salmeterol [Advair 1 each IH BID #1 blst.w.dev 05/06/17 Unknown Rx 250-50 Diskus] Meloxicam [Mobic] 15 mg PO QDAY #30 tablet 05/06/17 Unknown Rx Omeprazole Magnesium [PriLOSEC Otc] 20 mg PO BID #28 tablet.dr 05/06/17 Unknown Rx Potassium Chloride [K-Dur] 10 meq PO BID #60 tablet 05/06/17 Unknown Rx Acetaminophen/Codeine [Tylenol 1 tab PO Q4HR PRN #15 tablet 01/21/18 Unknown Rx /Codeine # 3 tab] HYDROcodone/APAP 5-325 [[place] 1 each PO Q6HR PRN #15 tablet 02/23/18 Unknown Rx 5/325] Nitrofurantoin Monohyd/M-Cryst 100 mg PO BID #14 capsule 02/23/18 Unknown Rx [Macrobid 100 mg Capsule] Ondansetron [Zofran Odt] 4 mg PO Q8HR PRN #10 tab.rapdis 02/23/18 Unknown Rx Allergies Allergy/AdvReac Type Severity Reaction Status Date / Time No Known Allergies Allergy Verified 01/20/18 18:26 ED Review of Systems ROS: Stated complaint: ABD PAIN Other details as noted in HPI Comment: All other systems reviewed and negative ED Past Medical Hx - Past Medical History Previous Medical History?: Yes Hx Congestive Heart Failure: No Hx Diabetes: No Hx Asthma: Yes Hx COPD: Yes (no home O2) - Surgical History Past Surgical History?: Yes Additional Surgical History: tonsilectomy, nasal surgery - Social History Smoking Status: Never Smoker Substance Use Type: None - Medications Home Medications: Home Medications Medication Instructions Recorded Confirmed Last Taken Type ALBUTEROL Inhaler [ProAir HFA 2 puff IH Q4H PRN #1 can 05/06/17 Unknown Rx Inhaler] Cetirizine HCl [Allergy Relief] 10 mg PO DAILY #15 tablet 05/06/17 Unknown Rx Fluticasone [Flonase] 2 sprays NS QDAY #1 bottle 05/06/17 Unknown Rx Fluticasone/Salmeterol [Advair 1 each IH BID #1 blst.w.dev 05/06/17 Unknown Rx 250-50 Diskus] Meloxicam [Mobic] 15 mg PO QDAY #30 tablet 05/06/17 Unknown Rx Omeprazole Magnesium [PriLOSEC Otc] 20 mg PO BID #28 tablet.dr 05/06/17 Unknown Rx Potassium Chloride [K-Dur] 10 meq PO BID #60 tablet 05/06/17 Unknown Rx Acetaminophen/Codeine [Tylenol 1 tab PO Q4HR PRN #15 tablet 01/21/18 Unknown Rx /Codeine # 3 tab] HYDROcodone/APAP 5-325 [[place] 1 each PO Q6HR PRN #15 tablet 02/23/18 Unknown Rx 5/325] Nitrofurantoin Monohyd/M-Cryst 100 mg PO BID #14 capsule 02/23/18 Unknown Rx [Macrobid 100 mg Capsule] Ondansetron [Zofran Odt] 4 mg PO Q8HR PRN #10 tab.rapdis 02/23/18 Unknown Rx ED Physical Exam - General Limitations: No Limitations General appearance: alert, in no apparent distress - Head Head exam: Present: atraumatic, normocephalic - Eye Eye exam: Present: normal appearance - ENT ENT exam: Present: mucous membranes moist - Neck Neck exam: Present: normal inspection - Respiratory Respiratory exam: Present: normal lung sounds bilaterally. Absent: respiratory distress, wheezes, rales - Cardiovascular Cardiovascular Exam: Present: regular rate, normal rhythm. Absent: systolic murmur, diastolic murmur, rubs, gallop - GI/Abdominal GI/Abdominal exam: Present: soft, tenderness (epigastric and suprapubic tenderness on palpation), normal bowel sounds. Absent: distended, guarding, rebound - Extremities Exam Extremities exam: Present: normal inspection - Back Exam Back exam: Present: normal inspection - Neurological Exam Neurological exam: Present: alert, oriented X3 - Psychiatric Psychiatric exam: Present: normal affect, normal mood - Skin Skin exam: Present: warm, dry, intact, normal color. Absent: rash ED Course Vital Signs 02/23/18 01:07 Temperature 98.3 F Pulse Rate 83 Respiratory 18 Rate Blood Pressure 98/60 O2 Sat by Pulse 100 Oximetry ED Medical Decision Making - Lab Data Result diagrams: 02/23/18 01:34 02/23/18 01:34 Lab Results 02/23/18 02/23/18 02/23/18 Range/Units 01:34 01:34 01:34 WBC 6.0 (4.5-11.0) K/mm3 RBC 4.89 (3.65-5.03) M/mm3 Hgb 14.0 (10.1-14.3) gm/dl Hct 40.2 (30.3-42.9) % MCV 82 (79-97) fl MCH 29 (28-32) pg MCHC 35 H (30-34) % RDW 13.9 (13.2-15.2) % Plt Count 297 (140-440) K/mm3 Lymph % (Auto) 25.8 (13.4-35.0) % [place] % (Auto) 10.8 H (0.0-7.3) % Eos % (Auto) 0.6 (0.0-4.3) % Baso % (Auto) 0.3 (0.0-1.8) % Lymph # 1.6 (1.2-5.4) K/mm3 [place] # 0.7 (0.0-0.8) K/mm3 Eos # 0.0 (0.0-0.4) K/mm3 Baso # 0.0 (0.0-0.1) K/mm3 Seg Neutrophils % 62.5 (40.0-70.0) % Seg Neutrophils # 3.8 (1.8-7.7) K/mm3 Sodium 143 (137-145) mmol/L Potassium 3.0 L (3.6-5.0) mmol/L Chloride 104.3 (98-107) mmol/L Carbon Dioxide 26 (22-30) mmol/L Anion Gap 16 mmol/L BUN 9 (7-17) mg/dL Creatinine 0.5 L (0.7-1.2) mg/dL Estimated GFR > 60 ml/min BUN/Creatinine Ratio 18 % Glucose 103 H (65-100) mg/dL Calcium 8.8 (8.4-10.2) mg/dL Total Bilirubin 0.20 (0.1-1.2) mg/dL AST 14 (5-40) units/L ALT 17 (7-56) units/L Alkaline Phosphatase 73 (35-129) units/L Total Protein 7.6 (6.3-8.2) g/dL Albumin 4.1 (3.9-5) g/dL Albumin/Globulin Ratio 1.2 % HCG, Qual Negative (Negative) Urine Color (Yellow) Urine Turbidity (Clear) Urine pH (5.0-7.0) Ur Specific [place] (1.003-1.030) Urine Protein (Negative) mg/dL Urine Glucose (UA) (Negative) mg/dL Urine Ketones (Negative) mg/dL Urine Blood (Negative) Urine Nitrite (Negative) Urine Bilirubin (Negative) Urine Urobilinogen (<2.0) mg/dL Ur Leukocyte Esterase (Negative) Urine WBC (Auto) (0.0-6.0) /HPF Urine RBC (Auto) (0.0-6.0) /HPF U Epithel Cells (Auto) (0-13.0) /HPF Urine Mucus /HPF 05/25/18 Range/Units Unknown WBC (4.5-11.0) K/mm3 RBC (3.65-5.03) M/mm3 Hgb (10.1-14.3) gm/dl Hct (30.3-42.9) % MCV (79-97) fl MCH (28-32) pg MCHC (30-34) % RDW (13.2-15.2) % Plt Count (140-440) K/mm3 Lymph % (Auto) (13.4-35.0) % [place] % (Auto) (0.0-7.3) % Eos % (Auto) (0.0-4.3) % Baso % (Auto) (0.0-1.8) % Lymph # (1.2-5.4) K/mm3 [place] # (0.0-0.8) K/mm3 Eos # (0.0-0.4) K/mm3 Baso # (0.0-0.1) K/mm3 Seg Neutrophils % (40.0-70.0) % Seg Neutrophils # (1.8-7.7) K/mm3 Sodium (137-145) mmol/L Potassium (3.6-5.0) mmol/L Chloride (98-107) mmol/L Carbon Dioxide (22-30) mmol/L Anion Gap mmol/L BUN (7-17) mg/dL Creatinine (0.7-1.2) mg/dL Estimated GFR ml/min BUN/Creatinine Ratio % Glucose (65-100) mg/dL Calcium (8.4-10.2) mg/dL Total Bilirubin (0.1-1.2) mg/dL AST (5-40) units/L ALT (7-56) units/L Alkaline Phosphatase (35-129) units/L Total Protein (6.3-8.2) g/dL Albumin (3.9-5) g/dL Albumin/Globulin Ratio % HCG, Qual (Negative) Urine Color Yellow (Yellow) Urine Turbidity Clear (Clear) Urine pH 6.0 (5.0-7.0) Ur Specific [place] 1.026 (1.003-1.030) Urine Protein <15 mg/dl (Negative) mg/dL Urine Glucose (UA) Neg (Negative) mg/dL Urine Ketones Tr (Negative) mg/dL Urine Blood Sm (Negative) Urine Nitrite Neg (Negative) Urine Bilirubin Neg (Negative) Urine Urobilinogen 2.0 (<2.0) mg/dL Ur Leukocyte Esterase Sm (Negative) Urine WBC (Auto) 28.0 H (0.0-6.0) /HPF Urine RBC (Auto) 7.0 (0.0-6.0) /HPF U Epithel Cells (Auto) 4.0 (0-13.0) /HPF Urine Mucus 2+ /HPF - Medical Decision Making Patient appears to have a UTI and most likely his nausea secondary to this condition. Patient given pain meds and nausea medicine here in emergency department be discharged with antibiotics Critical care attestation.: If time is entered above; I have spent that time in minutes in the direct care of this critically ill patient, excluding procedure time. ED Disposition Clinical Impression: Acute cystitis without hematuria Disposition: - TO HOME OR SELFCARE Is pt being admited?: No Does the pt Need Aspirin: No Condition: Stable Instructions: Abdominal Pain (ED), Urinary Tract Infection in Women (ED) Referrals: [facility] [Outside] - 3-5 Days
[2018-02-23 05:05] VITALS: BP 97/61
== END 2018-02-23 05:00 | disposition home or self-care (01) ==
LOC: ED 00:22
DX: N30.00 Acute cystitis without hematuria (principal); J44.9 Chronic obstructive pulmonary disease, unspecified
CPT/HCPCS: 36415; 80053; 81001; 84703; 85025; 99283; Q0162

== ENCOUNTER 2018-04-15 15:10 | Emergency (ER) | payer MEDICAID ==
[2018-04-15 15:44] VITALS: BP 104/69
[2018-04-15 16:24] LABS: Bilirubin,Urine NEG (Negative); Blood,Urine NEG (Negative); Color,Urine Yellow (Yellow); Mucus,Urine 1+ /HPF; Protein,Urine <15 mg/dL mg/dL (Negative)
[2018-04-15 16:48] LABS: HCG Qualitative,Urine Negative (Negative)
--- NOTE | 2018-04-15 16:57 | Emergency Department Report ---
ED Abdominal Pain HPI - General Chief Complaint: Abdominal Pain Stated Complaint: ABDOMINAL PAIN Time Seen by Provider: 04/15/18 16:49 Source: patient Mode of arrival: Ambulatory Limitations: No Limitations - History of Present Illness Initial Comments: Patient is a 38-year-old black female who is presenting with 3 days of suprapubic and left lower quadrant pain radiating to the left back. Patient states that she had one episode of nausea but no vomiting or diarrhea. Patient states she also had a fever this morning. Patient states the pain is aching sensation. Patient never had this symptom before. Patient has no dysuria but does have some urinary frequency. Severity: moderate Severity scale (0 -10): 6 - Related Data Previous Rx's Medication Instructions Recorded Last Taken Type ALBUTEROL Inhaler [ProAir HFA 2 puff IH Q4H PRN #1 can 05/06/17 Unknown Rx Inhaler] Cetirizine HCl [Allergy Relief] 10 mg PO DAILY #15 tablet 05/06/17 Unknown Rx Fluticasone [Flonase] 2 sprays NS QDAY #1 bottle 05/06/17 Unknown Rx Fluticasone/Salmeterol [Advair 1 each IH BID #1 blst.w.dev 05/06/17 Unknown Rx 250-50 Diskus] Meloxicam [Mobic] 15 mg PO QDAY #30 tablet 05/06/17 Unknown Rx Omeprazole Magnesium [PriLOSEC Otc] 20 mg PO BID #28 tablet.dr 05/06/17 Unknown Rx Potassium Chloride [K-Dur] 10 meq PO BID #60 tablet 05/06/17 Unknown Rx Acetaminophen/Codeine [Tylenol 1 tab PO Q4HR PRN #15 tablet 01/21/18 Unknown Rx /Codeine # 3 tab] HYDROcodone/APAP 5-325 [[place] 1 each PO Q6HR PRN #15 tablet 02/23/18 Unknown Rx 5/325] Nitrofurantoin Monohyd/M-Cryst 100 mg PO BID #14 capsule 02/23/18 Unknown Rx [Macrobid 100 mg Capsule] Ondansetron [Zofran Odt] 4 mg PO Q8HR PRN #10 tab.rapdis 02/23/18 Unknown Rx Ciprofloxacin HCl [Cipro] 500 mg PO BID #14 tablet 04/15/18 Unknown Rx Ibuprofen [Motrin] 800 mg PO Q8HR PRN #20 tablet 04/15/18 Unknown Rx Ondansetron [Zofran Odt] 4 mg PO Q8HR PRN #10 tab.rapdis 04/15/18 Unknown Rx traMADol [Ultram] 50 mg PO Q6HR PRN #10 tablet 04/15/18 Unknown Rx Allergies Allergy/AdvReac Type Severity Reaction Status Date / Time No Known Allergies Allergy Verified 01/20/18 18:26 ED Review of Systems ROS: Stated complaint: ABDOMINAL PAIN Other details as noted in HPI Comment: All other systems reviewed and negative ED Past Medical Hx - Past Medical History Hx Congestive Heart Failure: No Hx Diabetes: No Hx Asthma: Yes Hx COPD: Yes (no home O2) - Surgical History Additional Surgical History: tonsilectomy, nasal surgery - Social History Smoking Status: Never Smoker Substance Use Type: None - Medications Home Medications: Home Medications Medication Instructions Recorded Confirmed Last Taken Type ALBUTEROL Inhaler [ProAir HFA 2 puff IH Q4H PRN #1 can 05/06/17 Unknown Rx Inhaler] Cetirizine HCl [Allergy Relief] 10 mg PO DAILY #15 tablet 05/06/17 Unknown Rx Fluticasone [Flonase] 2 sprays NS QDAY #1 bottle 05/06/17 Unknown Rx Fluticasone/Salmeterol [Advair 1 each IH BID #1 blst.w.dev 05/06/17 Unknown Rx 250-50 Diskus] Meloxicam [Mobic] 15 mg PO QDAY #30 tablet 05/06/17 Unknown Rx Omeprazole Magnesium [PriLOSEC Otc] 20 mg PO BID #28 tablet.dr 05/06/17 Unknown Rx Potassium Chloride [K-Dur] 10 meq PO BID #60 tablet 05/06/17 Unknown Rx Acetaminophen/Codeine [Tylenol 1 tab PO Q4HR PRN #15 tablet 01/21/18 Unknown Rx /Codeine # 3 tab] HYDROcodone/APAP 5-325 [[place] 1 each PO Q6HR PRN #15 tablet 02/23/18 Unknown Rx 5/325] Nitrofurantoin Monohyd/M-Cryst 100 mg PO BID #14 capsule 02/23/18 Unknown Rx [Macrobid 100 mg Capsule] Ondansetron [Zofran Odt] 4 mg PO Q8HR PRN #10 tab.rapdis 02/23/18 Unknown Rx Ciprofloxacin HCl [Cipro] 500 mg PO BID #14 tablet 04/15/18 Unknown Rx Ibuprofen [Motrin] 800 mg PO Q8HR PRN #20 tablet 04/15/18 Unknown Rx Ondansetron [Zofran Odt] 4 mg PO Q8HR PRN #10 tab.rapdis 04/15/18 Unknown Rx traMADol [Ultram] 50 mg PO Q6HR PRN #10 tablet 04/15/18 Unknown Rx ED Physical Exam - General Limitations: No Limitations General appearance: alert, in no apparent distress - Head Head exam: Present: atraumatic, normocephalic - Eye Eye exam: Present: normal appearance - ENT ENT exam: Present: mucous membranes moist - Neck Neck exam: Present: normal inspection - Respiratory Respiratory exam: Present: normal lung sounds bilaterally. Absent: respiratory distress, wheezes, rales, rhonchi - Cardiovascular Cardiovascular Exam: Present: regular rate, normal rhythm. Absent: systolic murmur, diastolic murmur, rubs, gallop - GI/Abdominal GI/Abdominal exam: Present: soft, tenderness (mild tenderness in the left lower quadrant and left flank.), normal bowel sounds. Absent: distended, guarding, rebound, rigid - Extremities Exam Extremities exam: Present: normal inspection - Back Exam Back exam: Present: normal inspection - Neurological Exam Neurological exam: Present: alert, oriented X3 - Psychiatric Psychiatric exam: Present: normal affect, normal mood - Skin Skin exam: Present: warm, dry, intact, normal color. Absent: rash ED Course Vital Signs 04/15/18 15:41 Temperature 99.4 F Pulse Rate 88 Respiratory 18 Rate Blood Pressure 104/69 O2 Sat by Pulse 99 Oximetry ED Medical Decision Making - Lab Data Lab Results 04/15/18 Range/Units 15:51 Urine Color Yellow (Yellow) Urine Turbidity Clear (Clear) Urine pH 6.0 (5.0-7.0) Ur Specific [place] 1.020 (1.003-1.030) Urine Protein <15 mg/dl (Negative) mg/dL Urine Glucose (UA) Neg (Negative) mg/dL Urine Ketones Neg (Negative) mg/dL Urine Blood Neg (Negative) Urine Nitrite Neg (Negative) Urine Bilirubin Neg (Negative) Urine Urobilinogen 2.0 (<2.0) mg/dL Ur Leukocyte Esterase Sm (Negative) Urine WBC (Auto) 23.0 H (0.0-6.0) /HPF Urine RBC (Auto) 3.0 (0.0-6.0) /HPF U Epithel Cells (Auto) < 1.0 (0-13.0) /HPF Urine Mucus 1+ /HPF Urine HCG, Qual Negative (Negative) - Medical Decision Making Patient be treated for UTI with antibiotics and be given this for symptomatic relief. Critical care attestation.: If time is entered above; I have spent that time in minutes in the direct care of this critically ill patient, excluding procedure time. ED Disposition Clinical Impression: UTI (urinary tract infection) Qualifiers: Urinary tract infection type: acute cystitis Hematuria presence: without hematuria Qualified Code(s): N30.00 - Acute cystitis without hematuria Disposition: TO HOME OR SELFCARE Is pt being admited?: No Does the pt Need Aspirin: No Condition: Stable Instructions: Urinary Tract Infection in Women (ED) Referrals: PRIMARY CARE, [Primary Care Provider] - 3-5 Days
== END 2018-04-15 17:24 | disposition home or self-care (01) ==
LOC: ED 15:10
DX: N39.0 Urinary tract infection, site not specified (principal); J45.909 Unspecified asthma, uncomplicated; J44.9 Chronic obstructive pulmonary disease, unspecified
CPT/HCPCS: 81001; 81025; 99283